=== PATIENT | female | born 1995 | race American Indian/Alaskan Native ===

== ENCOUNTER 2021-10-20 22:43 | Emergency (ER) | payer MEDICAID ==
[2021-10-20 23:27] VITALS: BP 131/73
--- NOTE | 2021-10-21 00:09 | XRay Report ---
RIGHT ANKLE 3 VIEWS INDICATION / CLINICAL INFORMATION: Injury of right ankle. COMPARISON: None available. FINDINGS: BONES and JOINT(S): No acute fracture or subluxation. No significant arthritis. SOFT TISSUES: No significant abnormality. ADDITIONAL FINDINGS: None. IMPRESSION: 1. No acute findings. Signer Name: Jeremiah Shabazz MD Signed: 10/21/2021 12:05 AM Workstation Name: [id number]
[2021-10-21] MEDS ORDERED: IBUPROFEN 600 MG TAB PO ONE (00:29)
[2021-10-21] MEDS ORDERED: ONDANSETRON 4 MG ODT TAB PO ONE (00:29)
[2021-10-21] MEDS ORDERED: oxyCODONE /ACETAMINOPHEN 5-325MG TAB PO ONE (00:29)
--- NOTE | 2021-10-21 00:34 | Emergency Department Report ---
ED Lower Extremity HPI - General Chief Complaint: Extremity Injury, Lower Stated Complaint: BROKEN ANKLE Source: patient Mode of arrival: Ambulatory Limitations: No Limitations - History of Present Illness Initial Comments: Patient is a 25-year-old -[place] Citizen female with no past medical history who presents to the ED with complaint of acute onset persistent right ankle pain and swelling after she twisted her right ankle and fell down while skating about 3 hours ago. Patient states that she is unable to bear weight on the right ankle due to pain. Patient denies head or neck injuries, back pain, hip pain, knee pain, lightheadedness, dizziness, syncope, seizures, chest pain or shortness of breath, numbness and tingling or weakness of lower extremities bilaterally. MD Complaint: ankle injury (RIGHT ANKLE), fall, other (RIGHT ANKLE PAIN) -: Sudden, hour(s) (3) Injury: Ankle: Right (pain) Type of Injury: eversion, other (twisted right ankle and fell down during skating) Place: other (skating ring) Severity: severe Severity scale (0 -10): 8 Improves With: nothing Worsens With: weight bearing, movement, palpation Context: fall, walking, other (Twisted right ankle and fell during skating) Associated Symptoms: snap/pop sensation, swelling, able to partially bear weight. denies: numbness, tingling, unable to bear weight - Related Data Previous Rx's Medication Instructions Recorded Last Taken Type Cyclobenzaprine [Flexeril] 10 mg PO Q8H PRN #21 tab 10/21/21 Unknown Rx Ibuprofen [Motrin] 800 mg PO Q8HR PRN #30 tablet 10/21/21 Unknown Rx traMADoL [Ultram] 50 mg PO Q6HR PRN #10 tablet 10/21/21 Unknown Rx Allergies Allergy/AdvReac Type Severity Reaction Status Date / Time No Known Allergies Allergy Verified 10/20/21 23:28 ED Review of Systems ROS: Stated complaint: BROKEN ANKLE Other details as noted in HPI Constitutional: denies: chills, fever Eyes: denies: eye pain, eye discharge, vision change ENT: denies: ear pain, throat pain Respiratory: denies: cough, shortness of breath, wheezing Cardiovascular: denies: chest pain, palpitations Endocrine: no symptoms reported Gastrointestinal: denies: abdominal pain, nausea, diarrhea Genitourinary: denies: urgency, dysuria, discharge Musculoskeletal: joint swelling, arthralgia (Right ankle pain). denies: back pain Skin: denies: rash, lesions Neurological: denies: headache, weakness, paresthesias Psychiatric: denies: anxiety, depression Hematological/Lymphatic: denies: easy bleeding, easy bruising ED Past Medical Hx - Medications Home Medications: Home Medications Medication Instructions Recorded Confirmed Last Taken Type Cyclobenzaprine [Flexeril] 10 mg PO Q8H PRN #21 tab 10/21/21 Unknown Rx Ibuprofen [Motrin] 800 mg PO Q8HR PRN #30 tablet 10/21/21 Unknown Rx traMADoL [Ultram] 50 mg PO Q6HR PRN #10 tablet 10/21/21 Unknown Rx ED Physical Exam - General Limitations: No Limitations General appearance: alert, in no apparent distress - Head Head exam: Present: atraumatic, normocephalic, normal inspection - Eye Eye exam: Present: normal appearance, PERRL, EOMI Pupils: Present: normal accommodation - ENT ENT exam: Present: normal exam, normal orophraynx, mucous membranes moist, TM's normal bilaterally, normal external ear exam - Neck Neck exam: Present: normal inspection, full ROM. Absent: tenderness - Respiratory Respiratory exam: Present: normal lung sounds bilaterally. Absent: respiratory distress, wheezes, rales, rhonchi, stridor, accessory muscle use, decreased breath sounds, prolonged expiratory - Cardiovascular Cardiovascular Exam: Present: regular rate, normal rhythm, normal heart sounds. Absent: systolic murmur, diastolic murmur, rubs, gallop - GI/Abdominal GI/Abdominal exam: Present: soft, normal bowel sounds. Absent: tenderness, guarding, rebound, organomegaly, mass - Extremities Exam Extremities exam: Present: normal inspection, full ROM (Limited range of motion due to pain of right ankle), tenderness (Palpable right ankle tenderness with limited range of motion due to pain), normal capillary refill, joint swelling (Right ankle mild swelling). Absent: calf tenderness - Back Exam Back exam: Present: normal inspection, full ROM. Absent: tenderness, CVA tenderness (R), CVA tenderness (L), muscle spasm, paraspinal tenderness, vertebral tenderness - Neurological Exam Neurological exam: Present: alert, oriented X3, CN II-XII intact, normal gait, reflexes normal - Psychiatric Psychiatric exam: Present: normal affect, normal mood - Skin Skin exam: Present: warm, dry, intact, normal color. Absent: rash ED Course Vital Signs 10/20/21 23:11 Temperature 98.1 F Pulse Rate 79 Respiratory 18 Rate Blood Pressure 131/73 O2 Sat by Pulse 95 Oximetry ED Lower Extremity MDM - Radiology Data Radiology results: report reviewed, image reviewed [facility] [address] [place] [address] XRay Report Signed Patient: MILLER YOU MR#: [id number] 4 : 1995 Acct:[id number] Age/Sex: 25 / F ADM Date: 10/20/21 Loc: ED Attending Dr: Ordering Physician: GAY LOPEZ MD Date of Service: 10/20/21 Procedure(s): XR ankle 3+V RT Accession Number(s): [id number] cc: GAY LOPEZ MD Fluoro Time In Minutes: RIGHT ANKLE 3 VIEWS INDICATION / CLINICAL INFORMATION: Injury of right ankle. COMPARISON: None available. FINDINGS: BONES and JOINT(S): No acute fracture or subluxation. No significant arthritis. SOFT TISSUES: No significant abnormality. ADDITIONAL FINDINGS: None. IMPRESSION: 1. No acute findings. Signer Name: Jeremiah Shabazz MD Signed: 10/21/2021 12:05 AM Workstation Name: [id number] Transcribed By: RUDI Dictated By: Jeremiah Shabazz MD Electronically Authenticated By: Jeremiah Shabazz MD Signed Date/Time: 10/21/21 0005 DD/ 0004 TD/TT: Print - Medical Decision Making This is a 25-year-old -[place] Citizen female with no past medical history who presents to the ED with complaint of acute onset persistent right ankle pain and swelling after she twisted her right ankle and fell down while skating about 3 hours ago. Patient states that she is unable to bear weight on the right ankle due to pain. In the ED, patient is alert and oriented x3 and is not in any distress. Patient was treated for pain in the ED. Right ankle x-ray showed no acute fractures or subluxations. Patient already applied Eddie wrap to her right ankle. Patient was however able to bear weight and was discharged home on pain medications and advised to follow-up with her primary care physician in 7 to 10 days for reevaluation or return to the ED immediately if symptoms get worse. - Differential Diagnosis Ankle fracture; muscle strain; ankle sprain; Critical care attestation.: If time is entered above; I have spent that time in minutes in the direct care of this critically ill patient, excluding procedure time. ED Disposition Clinical Impression: Severe sprain of right ankle Qualifiers: Encounter type: initial encounter Qualified Code(s): S93.401A - Sprain of unspecified ligament of right ankle, initial encounter Muscle strain of right ankle Qualifiers: Encounter type: initial encounter Qualified Code(s): S96.911A - Strain of unspecified muscle and tendon at ankle and foot level, right foot, initial encounter Disposition: HOME / SELF CARE / HOMELESS Is pt being admited?: No Does the pt Need Aspirin: No Condition: Stable Instructions: Ankle Sprain, [id number], Muscle Strain, [id number] Additional Instructions: The right ankle x-ray showed no acute fractures or subluxations. Your injuries are musculoskeletal muscle strain or muscles sprain. Therefore take medications with food, drink plenty of fluids, follow-up with your primary care physician in 7 to 10 days for reevaluation or return to the ED immediately if symptoms get worse. Prescriptions: Cyclobenzaprine [Flexeril] 10 mg PO Q8H PRN #21 tab PRN Reason: Muscle Spasm Ibuprofen [Motrin] 800 mg PO Q8HR PRN #30 tablet PRN Reason: Pain , Severe (7-10) traMADoL [Ultram] 50 mg PO Q6HR PRN #10 tablet PRN Reason: Pain Referrals: [facility] [Provider Group] - 7-10 days Forms: Work/School Release Form(ED) Time of Disposition: 00:35 Print Language: TRINIDADIAN
== END 2021-10-21 01:10 | disposition home or self-care (01) ==
LOC: ED 22:43
DX: S93.401A Sprain of unspecified ligament of right ankle, initial encounter (principal); S96.911A Strain of unspecified muscle and tendon at ankle and foot level, right foot, initial encounter; Z79.899 Other long term (current) drug therapy; W18.39XA Other fall on same level, initial encounter; Y93.89 Activity, other specified; Y92.89 Other specified places as the place of occurrence of the external cause; Y99.8 Other external cause status
CPT/HCPCS: 99283